=== PATIENT | female | born 1985 | race Caucasian/White ===

== ENCOUNTER 2017-04-06 04:05 | Emergency (ER) | payer MEDICAID ==
[~2017-04-06] VITALS: Ht 162.6 cm; Wt 59.0 kg
[2017-04-06 04:10] VITALS: BP 139/69
--- NOTE | 2017-04-06 04:18 | NUR ---
AMBULATED TO ER BED 7
--- NOTE | 2017-04-06 04:31 | NUR ---
Patient being evaluated by physician at bedside.
[2017-04-06] MEDS ORDERED: NEOMYCIN/POLYMYXIN/BACITRACIN 0.9 GM/1 PKT TP ONE (04:35)
[2017-04-06] MEDS ORDERED: LIDOCAINE 1% 500 MG/50 ML VIAL INJ ONE (04:35)
--- NOTE | 2017-04-06 04:45 | NUR ---
DR. HERNANDEZ SUTURE AT [facility]
--- NOTE | 2017-04-06 04:45 | NUR ---
31Y/F PT. PRESENT TO ED WITH C/O CUT WOUND TO LT. INDEX FINGER. PT CUT HERSELF WHILE CUTTING VEGETABLE. NO MEDICAL HX. AAO X4, AMBULATORY WITH STEADY GAIT. SKIN WARM AND DRY, CUT WOUND TO LT.INDEX FINGER, NO ACTIVE BLEEDING AT THIS TIME. VSS, NO S/SX OF DISTRESS. ER MD MADE AWARE OF PT. STATUS.
--- NOTE | 2017-04-06 05:07 | NUR ---
Patient discharged with v/s stable. Written and verbal after care instructions given and explained. Patient alert, oriented and verbalized understanding of instructions. Ambulatory with steady gait. All questions addressed prior to discharge. ID band removed. Patient advised to follow up with PMD. Rx of MOTRIN 600 MG given. Patient educated on indication of medication including possible reaction and side effects. Opportunity to ask questions provided and answered.
[2017-04-06 05:08] VITALS: BP 128/78
== END 2017-04-06 05:07 | disposition home or self-care (01) ==
LOC: MED 04:05
DX: S61.412A Laceration without foreign body of left hand, initial encounter (principal); W45.8XXA Other foreign body or object entering through skin, initial encounter; Y93.G1 Activity, food preparation and clean up; Y92.89 Other specified places as the place of occurrence of the external cause; Y99.8 Other external cause status
CPT/HCPCS: 12001; 99283; J2001

== ENCOUNTER 2021-03-04 05:45 | Emergency (ER) | payer MEDICAID ==
[~2021-03-04] VITALS: Ht 157.5 cm; Wt 59.9 kg
[2021-03-04 05:58] VITALS: BP 145/92
--- NOTE | 2021-03-04 05:59 | NUR ---
AMBULATED TO BED 8
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
--- NOTE | 2021-03-04 07:07 | NUR ---
GIVEN REPORT TO IMAN BEAVERS FOR CONTINUITY OF CARE
[2021-03-04 07:57] VITALS: BP 145/92
--- NOTE | 2021-03-04 07:58 | NUR ---
Patient discharged with v/s stable. Written and verbal after care instructions given and explained. Patient verbalized understanding. Ambulatory with steady gait. All questions addressed prior to discharge. Advised to follow up with PMD.
== END 2021-03-04 07:58 | disposition home or self-care (01) ==
LOC: MED 05:45
DX: S59.901A Unspecified injury of right elbow, initial encounter (principal); E78.5 Hyperlipidemia, unspecified; W01.0XXA Fall on same level from slipping, tripping and stumbling without subsequent striking against object, initial encounter; Y93.89 Activity, other specified; Y92.096 Garden or yard of other non-institutional residence as the place of occurrence of the external cause; Y99.8 Other external cause status
CPT/HCPCS: 73080; 99283